=== PATIENT | male | born 2000 | race Caucasian/White ===

== ENCOUNTER 2024-04-19 23:55 | Emergency (ER) | payer SELFPAY ==
[~2024-04-19] VITALS: Ht 172.7 cm; Wt 60.0 kg
[2024-04-20 00:31] VITALS: O2SAT 100
[2024-04-20] MEDS ORDERED: KETOROLAC 15MG/ML VIAL IM ONE (01:15)
[2024-04-20] MEDS: KETOROLAC 15MG/ML VIAL IM NR (02:44)
[2024-04-20] MEDS ORDERED: IBUP-2029 MT (05:00)
[2024-04-20 06:46] VITALS: BP 142/78; PULSE 66; RESP 20; TEMP 36.55848; O2SAT 100
== END 2024-04-20 06:47 | disposition home or self-care (01) ==
LOC: ER 23:55
DX: S09.90XA Unspecified injury of head, initial encounter (principal); V49.9XXA Car occupant (driver) (passenger) injured in unspecified traffic accident, initial encounter; Y93.89 Activity, other specified; Y92.89 Other specified places as the place of occurrence of the external cause; Y99.8 Other external cause status
CPT/HCPCS: 99284